=== PATIENT | male | born 1985 | race Caucasian/White ===

== ENCOUNTER 2018-08-26 09:04 | Emergency (ER) | payer SELFPAY ==
[2018-08-26] MEDS ORDERED: KETOROLAC TROMETHAMINE INJ/PF 30 MG/1 ML SDV IM ONE (09:46)
--- NOTE | 2018-08-26 09:55 | ER Document Report ---
ED General Pain - General Chief Complaint: Back Pain Stated Complaint: LOWER BACK PAIN Time Seen by Provider: 08/26/18 09:45 Mode of Arrival: Ambulatory Information source: Patient TRAVEL OUTSIDE OF THE [place] IN LAST 30 DAYS: No - HPI Patient complains to provider of: Back pain leg pain Onset: Other - 33 your male presents for evaluation of pain in his right lower back which began after a fall off of his porch with his daughter and his arms on his right side. This was 2 days prior, he denies any loss of consciousness headache or loss of bladder or bowel continence. He has been able to walk went to work today and was told that he needed to come for further evaluation because he could not work today. Patient states that in the past he had had similar flareups which were all attributed to sciatic nerve pain. Because he does not have any insurance has been unable to follow-up previously for his chronic back pain. Denies any history of IV drug abuse, cellulitis, diabetes, other health problems, does not ingest any other things then tobacco. - Related Data Allergies/Adverse Reactions: No Known Allergies Allergy (Verified 04/21/15 08:21) Past Medical History - General Information source: Patient - Social History Smoking Status: Current Every Day Smoker Frequency of alcohol use: None Drug Abuse: None Family History: Reviewed & Not Pertinent Patient has suicidal ideation: No Patient has homicidal ideation: No Renal/ Medical History: Denies: Hx Peritoneal Dialysis Past Surgical History: Reports: Hx Tonsillectomy - and adenoids - Immunizations Immunizations up to date: Yes Hx Diphtheria, Pertussis, Tetanus Vaccination: Yes - 12/19/10 Review of Systems - Review of Systems -: Yes All other systems reviewed and negative Physical Exam - Vital signs Vitals: Temp Pulse Resp BP Pulse Ox 98.6 F 70 18 111/64 100 08/26/18 09:10 08/26/18 09:10 08/26/18 09:10 08/26/18 09:10 08/26/18 09:10 - General General appearance: Appears well In distress: Mild - HEENT Head: Normocephalic Eyes: Normal Conjunctiva: Normal Cornea: Normal Extraocular movements intact: Yes Eyelashes: Normal Pupils: PERRL - Respiratory Respiratory status: No respiratory distress Chest status: Nontender Breath sounds: Normal Chest palpation: Normal - Cardiovascular Rhythm: Regular Heart sounds: Normal auscultation Murmur: No - Abdominal Inspection: Normal Distension: No distension Tenderness: Nontender - Back Back: Tender - Tenderness in the right paraspinal muscles, tenderness in the right quadratus lumborum, no cervical midline tenderness, thoracic midline tenderness, lumbar midline tenderness - Extremities General upper extremity: Normal inspection, Nontender, Normal ROM, Normal strength General lower extremity: Normal inspection, Nontender, Normal ROM, Normal strength - Neurological Neuro grossly intact: Yes Cognition: Normal Orientation: AAOx4 Jose De Jesus Coma Scale Eye Opening: Spontaneous Jose De Jesus Coma Scale Verbal: Oriented Everly Coma Scale Motor: Obeys Commands Jose De Jesus Coma Scale Total: 15 Speech: Normal Cranial nerves: Normal Cerebellar coordination: Normal Motor strength normal: LUE, RUE, LLE, RLE - Psychological Associated symptoms: Normal affect Course - Re-evaluation Re-evalutation: 08/26/18 09:59 This a gentleman who presents for evaluation of right-sided low back pain and sciatic symptoms. He does not have any neurologic deficits, he does not have any stigmata of cauda equina syndrome such as urinary retention or saddle anesthesia. As this patient currently does not exhibit any signs of cauda equina, he has no history of IV drug abuse or secondary signs of infection without any predisposing medical conditions.believe there is any indication at this time for further pursuit of epidural abscess evaluation. He has had multiple plain films in the past all of which were negative. We will attempt analgesia, trial of ambulation in the emergency department and likely light duty at work for the next 2 days. Patient will be instructed to utilize NSAIDs for his pain. He is given a Percocet as well as ibuprofen through [facility] to help with his pain. - Vital Signs Vital signs: Temp Pulse Resp BP Pulse Ox 98.6 F 70 18 111/64 100 08/26/18 09:10 08/26/18 09:10 08/26/18 09:10 08/26/18 09:10 08/26/18 09:10 Discharge - Discharge Clinical Impression: Back pain Qualifiers: Back pain location: low back pain Chronicity: acute Back pain laterality: right Sciatica presence: with sciatica Sciatica laterality: sciatica of right side Qualified Code(s): M54.41 - Lumbago with sciatica, right side Condition: Good Disposition: HOME, SELF-CARE Instructions: Low Back Pain ([facility]), Muscle Strain ([facility]), Warm Packs ([facility]) Additional Instructions: You were seen today in the emergency department for your back pain. You should take ibuprofen 600 mg every 8 hours for the next 3 days. You should use Tylenol 1 g 3 times a day for the next week. You should use the numbing medicine prescribed to you over the area which hurts. Use the muscle relaxer prescribed only as needed. Return for worsening numbness or weakness, return if you are unable to go to the bathroom, if you begin to have fevers or chills or other symptoms otherwise you should schedule an appointment with her primary physician this week. Prescriptions: Cyclobenzaprine HCl [Flexeril 5 mg Tablet] 5 mg PO TID #15 tablet Diclofenac Sodium [Voltaren] 100 gm TP BID #1 gel..gram. Forms: Return to Work, Smoking Cessation Education
[2018-08-26] MEDS ORDERED: IBUPROFEN 400 MG TABLET PO ONE (09:58)
[2018-08-26] MEDS ORDERED: OXYCODONE-ACETAMINOPHEN 5-325 MG TABLET PO ONE (10:31)
[2018-08-26 11:31] VITALS: BP 110/60
== END 2018-08-26 11:24 | disposition home or self-care (01) ==
LOC: ER 09:04
DX: M54.41 Lumbago with sciatica, right side (principal); W17.89XA Other fall from one level to another, initial encounter; F17.200 Nicotine dependence, unspecified, uncomplicated
CPT/HCPCS: 99283; J3490

== ENCOUNTER 2018-09-22 23:42 | Emergency (ER) | payer SELFPAY ==
[2018-09-23] MEDS ORDERED: LIDOCAINE 1%/EPINEPHRINE INJ 20 ML VIAL INJ ONE (01:37)
--- NOTE | 2018-09-23 01:37 | ER Document Report ---
ED GI Bleed / Rectal Pain - General Chief Complaint: Hemorrhoids Stated Complaint: POSSIBLE HEMORRHOID,POSSIBLE RASH Time Seen by Provider: 09/23/18 01:36 Mode of Arrival: Ambulatory Information source: Patient Notes: This is a 33-year-old man with a history of hemorrhoid. 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 TRAVEL OUTSIDE OF THE [place] IN LAST 30 DAYS: No - HPI Patient complains to provider of: Hemorrhoids. No: Bright red bld from rect., Coffee ground emesis, Dark red bld from rectum Onset: Last week Timing/Duration: Constant Quality of pain: Dull Severity of symptoms: Moderate Pain Level: 2 Emesis description: No: Blood tinged, Bright red blood, Brown, Clear, Coffee grounds, Green, Undigested food, Yellow, Other Rectal foreign body: No Rectal pain with intercourse: No Use of: denies: Warfarin, Plavix, ASA, Lovenox, Pradaxa, NSAIDS, ETOH Associated symptoms: Back pain Exacerbated by: Other Relieved by: Denies - Bowel movement Similar symptoms previously: Yes Recently seen / treated by doctor: No - Related Data Allergies/Adverse Reactions: No Known Allergies Allergy (Verified 04/21/15 08:21) Past Medical History - General Information source: Patient - Social History Smoking Status: Current Every Day Smoker Cigarette use (# per day): Yes - 1 pack/day Chew tobacco use (# tins/day): No Frequency of alcohol use: None Drug Abuse: None Lives with: Family Family History: Reviewed & Not Pertinent Patient has suicidal ideation: No Patient has homicidal ideation: No - Past Medical History Cardiac Medical History: Reports: None Pulmonary Medical History: Reports: None EENT Medical History: Reports: None Neurological Medical History: Reports: None Endocrine Medical History: Reports: None Renal/ Medical History: Reports: None. Denies: Hx Peritoneal Dialysis Malignancy Medical History: Reports None GI Medical History: Reports: Other - Hemorrhoids Musculoskeletal Medical History: Reports None Skin Medical History: Reports None Traumatic Medical History: Reports: None Infectious Medical History: Reports: None Past Surgical History: Reports: Hx Tonsillectomy - and adenoids - Immunizations Immunizations up to date: Yes Hx Diphtheria, Pertussis, Tetanus Vaccination: Yes - 12/19/10 Review of Systems - Review of Systems Constitutional: denies: Chills, Fever EENT: No symptoms reported Cardiovascular: No symptoms reported Respiratory: No symptoms reported Gastrointestinal: See HPI. denies: Abdomen distended, Abdominal pain Genitourinary: No symptoms reported Male Genitourinary: No symptoms reported Musculoskeletal: No symptoms reported Skin: See HPI Hematologic/Lymphatic: No symptoms reported Neurological/Psychological: No symptoms reported Physical Exam - Vital signs Vitals: Temp Pulse Resp BP Pulse Ox 98.7 F 85 18 129/91 H 100 09/22/18 23:44 09/22/18 23:44 09/22/18 23:44 09/22/18 23:44 09/22/18 23:44 Notes: Physical exam: GENERAL: HEAD: Atraumatic, normocephalic. EYES: Pupils equal round and reactive to light, extraocular movements intact, sclera anicteric, conjunctiva are normal. ENT: Moist mucous membranes. NECK: Normal range of motion, supple ABDOMEN: Soft, normoactive bowel sounds. No tenderness to palpation. No guarding, no rebound. No masses appreciated. Rectal: Thrombosed external hemorrhoid. No obvious internal masses on rectal exam. EXTREMITIES: Normal range of motion, no pitting or edema. No clubbing or cyanosis. NEUROLOGICAL: Cranial nerves II through XII grossly intact. Normal speech, moving all extremities. PSYCH: Normal mood, normal affect. SKIN: Warm, Dry, normal turgor, no rashes or lesions noted. Course - Vital Signs Vital signs: Temp Pulse Resp BP Pulse Ox 97.8 F 65 18 112/72 100 09/23/18 01:26 09/23/18 01:26 09/23/18 01:26 09/23/18 01:26 09/23/18 01:26 Procedures - Incision and Drainage Buttock Time completed: 02:37 Type: Simple Anesthetic type: 1% Lidocaine mL's of anesthetic: 3 Blade size: 11 I&D procedure: Betadine prep applied Incision Method: Incision made by scalpel - Thrombosed hemorrhoid incised and drained. Clot liberated. Discharge - Discharge Clinical Impression: Thrombosed hemorrhoid, Poison allen Condition: Stable Disposition: HOME, SELF-CARE Additional Instructions: Take out water baths with soap each day. Can apply the lidocaine ointment and bacitracin ointment on a gauze and keep it over the rectum 15 minutes before a bowel movement. You can also insert a glycerin suppository 15 minutes before a bowel movement. This will numb the area and keep the stool soft for when you have a bowel movement. I do want you to follow-up with the surgical clinic for definitive care. Return to the emergency room for worsening pain. The pain medicine as prescribed. Stool softener as prescribed. The pain medicine you're taking prescribed as a narcotic. There are several important things you should know about this medicine: 1. This medicine contains Tylenol: It is important that you do not take Tylenol (or acetaminophen) while on this medicine. Tylenol is metabolized by the liver and taking too much Tylenol (acetaminophen) can lay to liver damage and even liver failure. 2. Taking narcotics for too long can lead to physical and mental dependence. Take this medicine only if really needed and in the lowest quantity to achieve pain relief. 3. Do not drink alcohol while on this medicine. Alcohol interacts with narcotics and the combination can be dangerous. 4. Do not drive or operate machinery while on this medicine. 5. Narcotics do cause constipation, so drink plenty of fluids and daily stool softeners. Prescriptions: Bacitracin Zinc [Bacitracin Oint 15 gm] 1 applic TP DAILY #1 tube Docusate Sodium [Colace 100 mg Capsule] 100 mg PO DAILY #30 capsule Glycerin 1 each RC DAILY #10 supp.rect Oxycodone HCl/Acetaminophen [Percocet 5-325 mg Tablet] 1 - 2 tab PO ASDIR PRN # 25 tablet PRN Reason: Forms: Return to Work Referrals: CASSANDRA PARIKH MD [ACTIVE STAFF] - Follow up as needed (This is the number of the surgical clinic: Tell them he was seen in the ER and were referred for definitive management of hemorrhoids.)
[2018-09-23] MEDS ORDERED: LIDOCAINE 2% JELLY 5 ML TUBE TOP ONE (02:15)
[2018-09-23] MEDS ORDERED: OXYCODONE-ACETAMINOPHEN 5-325 MG TABLET PO ONE (02:26)
[2018-09-23 03:11] VITALS: BP 121/82
== END 2018-09-23 03:11 | disposition home or self-care (01) ==
LOC: ER 23:42
PROC: 0H98XZZ Drainage of Buttock Skin, External Approach (ICD-10-PCS; principal; 2018-09-22)
DX: K64.5 Perianal venous thrombosis (principal); L23.7 Allergic contact dermatitis due to plants, except food; F17.210 Nicotine dependence, cigarettes, uncomplicated
CPT/HCPCS: 99283; 46083; J3490

== ENCOUNTER 2018-12-24 14:08 | Emergency (ER) | payer OTHER ==
[2018-12-24 14:15] VITALS: BP 129/66
[2018-12-24] MEDS ORDERED: HYDROCODONE/ACETAMINOPHEN 5-325 MG TABLET PO ONE (14:43)
[2018-12-24] MEDS ORDERED: LIDOCAINE 5% (700 MG) TRANSDERMAL ADH..PATCH TP ONE (14:43)
[2018-12-24] MEDS ORDERED: IBUPROFEN 800 MG TABLET PO ONE (14:43)
--- NOTE | 2018-12-24 14:46 | ER Document Report ---
HPI - HPI Patient complains to provider of: Low back pain Time Seen by Provider: 12/24/18 14:31 Onset: Last week Onset/Duration: Worse Quality of pain: Sharp Pain Level: 2 Context: Patient complains of low back pain for the past week that has worsened over the past day. 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 Patient does report that pain radiates to right lower extremity. Patient denies any urinary retention or incontinence. Patient denies any fever or history of IV drug use. Patient states pain is typical of flareups that he has had in the past. Associated Symptoms: denies: Fever, Weakness Exacerbated by: Standing, Movement, Walking Relieved by: Denies Similar symptoms previously: Yes Recently seen / treated by doctor: No - ROS ROS below otherwise negative: Yes Systems Reviewed and Negative: Yes All other systems reviewed and negative - CONSTITUTIONAL Constitutional: DENIES: Fever, Chills - NEURO Neurology: DENIES: Weakness - URINARY Urinary: DENIES: Dysuria, Urgency, Frequency - MUSCULOSKELETAL Musculoskeletal: REPORTS: Extremity pain, Back Pain - DERM Skin Color: Normal Skin Problems: None Past Medical History - General Information source: Patient - Social History Smoking Status: Current Every Day Smoker Frequency of alcohol use: None Drug Abuse: None Occupation: [employer] Lives with: Family Family History: Reviewed & Not Pertinent Patient has suicidal ideation: No Patient has homicidal ideation: No Renal/ Medical History: Denies: Hx Peritoneal Dialysis Musculoskeletal Medical History: Reports Other - Chronic back pain Past Surgical History: Reports: Hx Tonsillectomy - and adenoids - Immunizations Immunizations up to date: Yes Hx Diphtheria, Pertussis, Tetanus Vaccination: Yes - 12/19/10 Vertical Provider Document - CONSTITUTIONAL Agree With Documented VS: Yes Exam Limitations: No Limitations General Appearance: No Apparent Distress Notes: PHYSICAL EXAMINATION: GENERAL: Well-appearing, well-nourished and in no acute distress. HEAD: Atraumatic, normocephalic. EYES: sclera clear, anicteric, conjunctiva are normal. ENT: nares patent, Moist mucous membranes. NECK: Normal range of motion, supple no lymphadenopathy LUNGS: respirations unlabored HEART: Regular rate and rhythm without murmurs EXTREMITIES: Normal range of motion, no pitting or edema. No cyanosis. Gait normal, pt ambulates without difficulty BACK: Right lower lumbar paraspinal tenderness, right SI joint tenderness, no midline tenderness, no deformities or step-offs. No CVA tenderness. NEUROLOGICAL: Cranial nerves grossly intact. Normal speech, normal gait. No saddle anesthesia. PSYCH: Normal mood, normal affect. SKIN: Warm, Dry, normal turgor, no rashes or lesions noted. - INFECTION CONTROL TRAVEL OUTSIDE OF THE [place] IN LAST 30 DAYS: No Course - Re-evaluation Re-evalutation: 12/24/18 14:44 The patient presents with low back pain without signs of spinal cord compression, cauda equina syndrome, infection, aneurysm, or other serious etiology. The patient is neurologically intact. Given the extremely risk of these diagnoses further testing and evaluation for these possibilities does not appear to be indicated at this time. Patient has been instructed to return if the symptoms worsen or change in any way. - Vital Signs Vital signs: Temp Pulse Resp BP Pulse Ox 97.9 F 77 16 129/66 H 98 12/24/18 14:14 12/24/18 14:14 12/24/18 14:14 12/24/18 14:14 12/24/18 14:14 Discharge - Discharge Clinical Impression: Low back pain Qualifiers: Chronicity: unspecified Back pain laterality: right Sciatica presence: with sciatica Sciatica laterality: sciatica of right side Qualified Code(s): M54.41 - Lumbago with sciatica, right side Condition: Stable Disposition: HOME, SELF-CARE Instructions: Ice Packs ([facility]), Low Back Pain ([facility]), Oral Narcotic Medication ([facility]), Sciatica ([facility]), Steroid Medication Additional Instructions: Return immediately for any new or worsening symptoms Followup with your primary care provider, call tomorrow to make a followup appointment Prescriptions: Hydrocodone/Acetaminophen [[place] 5-325 mg Tablet] 1 tab PO Q6 PRN #15 tablet PRN Reason: Prednisone [Deltasone 20 mg Tablet] 3 tab PO DAILY 5 Days tablet Forms: Smoking Cessation Education, Return to Work Referrals: [facility] [Provider Group] - Follow up as needed
== END 2018-12-24 14:57 | disposition home or self-care (01) ==
LOC: ER 14:08
DX: M54.41 Lumbago with sciatica, right side (principal); F17.200 Nicotine dependence, unspecified, uncomplicated
CPT/HCPCS: 99283

== ENCOUNTER 2020-05-15 19:41 | Emergency (ER) | payer OTHER | END 2020-05-15 20:30 | disposition left against medical advice (07) | LOC: ER 19:41 | DX: Z53.21 Procedure and treatment not carried out due to patient leaving prior to being seen by health care provider (principal) ==